=== PATIENT | female | born 1990 | race Caucasian/White ===

== ENCOUNTER 2025-01-03 12:02 | Day surgery (SDC) | payer OTHER, SELFPAY ==
[2025-01-02 07:17] VITALS: BMI 27.1
[2025-01-03 12:18] LABS: Hematocrit 37.3 % (37-47); Hemoglobin 11.3 g/dL (12.0-15.0); Mean Corp Hgb Conc 30.3 g/dL (32-36); Mean Corpuscular Volume 84.0 fL (81-99); Mean Platelet Vol. 10.5 fl (6.2-12.0); Platelet Count 270 K/mm3 (150-450); RBC Distribution Width CV 14.6 % (11.6-14.6); RBC Distribution Width SD 44.5 fl (35.1-43.9); Red Blood Count 4.44 M/mm3 (4.2-5.4); White Blood Count 3.8 K/mm3 (4.4-11.0)
[2025-01-03 12:39] LABS: Anion Gap 8 (5-15); BUN 5 mg/dL (4-19); BUN/Creat Ratio 7.9 RATIO (10-20); Calcium,Total 9.5 mg/dL (7.6-11.0); Carbon Dioxide 27.5 mmol/L (21.0-32.0); Chloride 103 mmol/L (98-108); Estimated Creatinine Clearance 145.98 ml/min (50-250); Glucose 104 mg/dL (70-99); Potassium 4.5 mmol/L (3.3-5.1)
[2025-01-03 13:23] LABS: Internal QC Validated? YES +Cl - CLEAR BKGD; Pregnancy, Serum, hCG Quali. NEGATIVE Negative; Record Kit Lot#, Serum Preg. 980607
--- NOTE | 2025-01-03 16:15 | OP.PCM_ITS ---
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 Post-Operative Diagnosis: Same, no evidence of residual dynamic compression or fix stenosis Surgery/Procedure Performed: Abdominal aortogram shadow graph weight operator: No Type of Anesthesia: Local and Sedation,Conscious Procedure Start Time: 14:10 Procedure Stop Time: 14:30 Select all DRAINS/GRAFTS/IMPLANTS that apply: None Estimated Blood Loss: 1 Specimen collected: No Description of surgery: HPI: Patient is a 34-year-old female who previously was diagnosed with median arcuate ligament syndrome and had undergone laparoscopic release with temporary relief of her symptoms with subsequent recurrence. She had a arterial duplex which suggested elevated velocities in the celiac artery so she is taken now for dynamic angiogram to evaluate for any residual compression or fixed stenosis. Description procedure: Upon obtaining informed consent and verification correct patient procedure site the patient was taken to the [facility] where she was positioned prepped and draped in usual sterile fashion. Timeout was then performed Sedation administered Versed and fentanyl. Skin overlying the left radial artery was anesthetized 1% lidocaine the vessel accessed with a micropuncture needle wire and exchanged for a 6 Bengali slender sheath. Through this heparin, verapamil, nitro were infused and Bentson wire advanced under fluoroscopic guidance into the aortic arch. Pigtail catheter was then advanced over the wire and utilized to navigate into the descending thoracic aorta position and the catheter at the distal segment of the aorta. From this position subtraction angiography of the aorta and visceral vessels was performed at end expiratory and inspiratory phases. This revealed normal caliber celiac artery with no stenosis and no evidence of dynamic compression or stenosis with respiratory phase. The catheter is then withdrawn and a TR band placed at the access site and the sheath removed. The patient was then taken recovery with plan discharge to home. Surgical Findings: See above Complications Complications: No
== END 2025-01-03 15:58 | disposition home or self-care (01) ==
PROVIDERS: Referring Provider Surgery Trauma Surgery; Visit Provider Surgery Trauma Surgery
DX: Z71.1 Person with feared health complaint in whom no diagnosis is made (principal); I77.4 Celiac artery compression syndrome; Z87.891 Personal history of nicotine dependence; K21.9 Gastro-esophageal reflux disease without esophagitis
CPT/HCPCS: 36200; 36415; 75625; 80048; 84703; 85027; 86850; 86900; 86901; 99152; 99153; C1769; Q9967; C1894